=== PATIENT | male | born 1950 | race Caucasian/White ===

== ENCOUNTER 2018-10-30 20:26 | Inpatient (IN) | payer MEDICARE, MEDICAID ==
[2018-10-30] MEDS ORDERED: Albuterol/Ipratropium Neb 3 ML AERS HHN ONE ×2 (20:44→20:48)
--- NOTE | 2018-10-30 21:30 | ED Physician Chart ---
ED Chief Complaint/HPI - Patient Information Date Seen:: 10/30/18 Time Seen:: 20:40 Chief Complaint:: Agitation History of Present Illness:: onset x 3 days of agitation and aggressive behavior; no report of trauma, H/As, LOC, ALOC, AMS, S/T, neck pain, cough, C/P, SOB, Abd. Pain, A/N/V/D/C, fever, chills, SIs, or urinary s/s Allergies:: Allergies Allergy/AdvReac Type Severity Reaction Status Date / Time No Known Allergies Allergy Verified 10/30/18 20:40 Vitals:: Vital Signs - 8 hr 10/30/18 10/30/18 20:40 21:01 Temp 97.9 F 97.8 F HR 76 75 RR 26 35 BP 137/86 142/72 O2 Sat % 92 93 Historian:: Patient, EMS Review:: Nurse's Note Reviewed, Old Chart Reviewed, EMS run form Reviewed ED Review of Systems - Review of Systems General/Constitutional: No fever, No chills, No weight loss, No weakness, No diaphoresis, No edema, No loss of appetite Skin: No skin lesions, No rash, No bruising Head: No headache, No light-headedness Eyes: No loss of vision, No pain, No diplopia ENT: No earache, No nasal drainage, No sore throat, No tinnitus Neck: No neck pain, No swelling, No thyromegaly, No stiffness, No mass noted Cardio Vascular: No chest pain, No palpitations, No PND, No orthopnea, No edema Pulmonary: SOB, Cough, No sputum, Wheezing GI: No nausea, No vomiting, No diarrhea, No pain, No melena, No hematochezia, No constipation, No hematemesis G/U: No dysuria, No frequency, No hematuria, No nacturia Musculoskeletal: No bone or joint pain, No back pain, No muscle pain Endocrine: No polyuria, No polydipsia Psychiatric: Prior psych history, Depression, Anxiety, No suicidal ideation, No homicidal ideation, No auditory hallucination, No visual hallucination Hematopoietic: No bruising, No lymphadenopathy Allergic/Immuno: No urticaria, No angioedema Neurological: No syncope, No focal symptoms, No weakness, No paresthesia, No headache, No seizure, No dizziness, No confusion, No vertigo ED Past Medical History - Past Medical History Obtainable: Yes Past Medical History: HTN, DM, Asthma/COPD, Dyslipidemia, PUD/GERD, Seizures, Arthritis, Dementia Family History: Diabetes Melitus, HTN Social History: Non Smoker, No Alcohol, No Drug Use, Single, Care Facility Surgical History: None Psychiatricy History: Schizophrenia, Bipolar, Dementia Medication: Reviewed Family Medical History - Family Member Mother History Unknown: Yes ED Physical Exam - Physical Examination General/Constitutional: Awake, Well-developed, well-nourished, Alert, No distress, GCS 15, Non-toxic appearing, Ambulatory Head: Atraumatic Eyes: Lids, conjuctiva normal, PERRL, EOMI Skin: Nl inspection, No rash, No skin lesions, No ecchymosis, Well hydrated, No lymphadenopathy ENMT: External ears, nose nl, TM canals nl, Nasal exam nl, Lips, teeth, gums nl , Oropharynx nl, Tonsils nl Neck: Nontender, Full ROM w/o pain, No JVD, No nuchal rigidity, No bruit, No mass, No stridor Other Neck comments:: supple; no meningeal signs; no cervical tenderness; no bruits Respiratory: Nl effort/Exclusion Other Respiratory comments:: Lungs: + Expiratory Wheezes Cardio Vascular: No murmur, gallop, rubs, NL S1 S2, Carotid/Femoral/Distal pulses equal bilaterally Other Cardio Vascular comments:: Irregular Irregular Rhythm GI: No tenderness/rebounding/guarding, No organomegaly, No hernia, Normal BS's, Nondistended, No mass/bruits, No McBurney tenderness Other GI comments:: no pulsatile masses : No CVA tenderness Extremities: No tenderness or effusion, Full ROM, normal strength in all extremities, No edema, Normal digits & nails Neuro/Psych: Alert/oriented, DTR's symmetric, Normal sensory exam, Normal motor strength, Judgement/insight normal, Mood normal, Normal gait, No focal deficits Other Neuro/Psych comments:: no focal signs; MSE: + Psychomotor Agitation; no SIs; Mood/Affect: Labile Misc: Normal back, No paraspinal tenderness ED Labs/Radiology/EKG Results - Lab Results Comments:: Refused by pt - Radiology Results Comments:: NAD; CM - EKG Interpretations EKG Time:: 21:01 Rate & Rhythm: 91; Atrial Fibrillation Comments:: non-specific st-t changes; IVCD ED Septic Shock - . Is Septic Shock (SBP<90, OR Lactate>4 mmol\L) present?: No - <6hrs of presentation: Vital Signs: Vital Signs - 8 hr 10/30/18 10/30/18 20:40 21:01 Temp 97.9 F 97.8 F HR 76 75 RR 26 35 BP 137/86 142/72 O2 Sat % 92 93 ED Reassessment (Disposition) - Reassessment Reassessment Condition:: Improved - Diagnosis Diagnosis:: Dx: Agitation; Medical Clearance; Atrial Fibrillation; HTN; DM; Dementia; Psychosis; Schizo-Affective Disorder; Bipolar Disorder - Aftercare/Follow up Instructions Aftercare/Follow-Up Instructions:: Counseled pt regarding lab results/diagnosis & need follow up, Counseled pt & family regarding lab results/diagnosis & need follow up - Patient Disposition Discharge/Transfer:: Acute Care w/in this hosp Admitted to:: [facility] Condition at Disposition:: Stable, Improved
[2018-10-30 23:02] VITALS: BP 113/68
[2018-10-30] MEDS ORDERED: HYPROMELLOSE EACH EYE PRN (23:21)
[2018-10-30] MEDS ORDERED: Magnesium Hydroxide (MOM) 30 mL UDC PO PRN (23:21)
[2018-10-30] MEDS ORDERED: DEXTRAN EACH EYE PRN (23:21)
[2018-10-31] MEDS ORDERED: Polyvinyl Alcohol Ophth Soln 15 mL Bottle EACH EYE PRN (01:25)
[2018-10-31] MEDS: INSULIN ASPART SLIDING SCALE 100 UNITS/ML UNIT SUBQ SCH ×4 (06:39→22:14)
[2018-10-31] MEDS: Pantoprazole 40 mg EC Tab PO SCH (06:40)
--- NOTE | 2018-10-31 08:27 | Diagnostic Imaging Report ---
Portable chest x-ray HISTORY: Shortness of breath The heart appears enlarged. Density noted in the left lower hemithorax suggesting a small effusion. IMPRESSION: 1. Cardiomegaly 2. Density within the left lower hemithorax that may be associated with a pleural effusion. Pneumonia cannot be excluded. Clinical correlation is needed.
[2018-10-31] MEDS: Aspirin 81mg Chewable Tab PO SCH (08:57)
[2018-10-31] MEDS: Lactobacillus Rhamnosus GG 15 Billion CFU CAP.SPRINK PO SCH (08:58)
[2018-10-31] MEDS: Multivitamin w/ Minerals Tab PO SCH (08:58)
[2018-10-31] MEDS ORDERED: PECTIN PO SCH (09:00)
[2018-10-31] MEDS ORDERED: PREDNISONE 5 MG PO SCH (09:00)
[2018-10-31] MEDS ORDERED: LACTOBACILLUS ACIDOPHILUS PO SCH (09:00)
[2018-10-31] MEDS ORDERED: [UNRECOGNIZED DRUG - OTHER] PO SCH (09:00)
[2018-10-31] MEDS ORDERED: Non-Formulary Item 1 EA (Cranberry Fruit Extract [Cranberry] 425 MG) PO SCH (09:00)
[2018-10-31] MEDS ORDERED: Insulin Detemir 100 units/mL 10mL Vial SUBQ SCH (09:00)
[2018-10-31] MEDS ORDERED: Non-Formulary Item 1 EA (Atorvastatin Calcium [Lipitor] 20 MG) PO SCH (21:00)
[2018-10-31] MEDS: Atorvastatin Calcium 10 MG TAB PO SCH (21:50)
--- NOTE | 2018-10-31 23:07 | Psychiatric Evaluation ---
DATE OF SERVICE: 10/31/2018 HISTORY OF PRESENT ILLNESS: A 68-year-old male, currently from [facility], well known to this clinician, 3 days of agitation and aggressive behaviors. The patient yelling, screaming "get me the fuck out of here, I want to go now." Not answering any questions other than just ruminating and perseverating about wanting to leave, aggressive, yelling, screaming, poor historian. PAST PSYCHIATRIC HISTORY: Admissions in the past. History of mood disorder and cognitive impairment, and dementia. SOCIAL HISTORY: Living in a senior living. No smoking. No drugs. No alcohol. Denies having a or kids, but he states "I probably have kids." PAST MEDICAL HISTORY: Noted including arthritis. MEDICATIONS: Noted. MENTAL STATUS EXAMINATION: Stated age, fair eye contact. Speech loud, yelling. Mood: "I want to go." Affect flat. Thought processes were disoriented, disengaged. No overt SI or HI, unclear psychotic symptoms. Insight and judgment diminished. Impulse control is poor. Medications were noted. PROVISIONAL DIAGNOSES: Dementia per history and bipolar per history. MEDICAL: Please see full H and P. ESTIMATED LENGTH OF STAY: 7-10 days. ASSESSMENT: The patient unruly, agitated, aggressive, loud, screaming. PLAN: We will restart medications. TREATMENT PLAN: Includes group as well as milieu therapy. CONDITIONS FOR DISCHARGE: Improved mood, improved affect, better control of his mood symptoms, yelling, screaming. [facility]# [id number]
--- NOTE | 2018-11-01 00:37 | History & Physical ---
ADMIT DATE: 10/31/2018 REASON FOR ADMISSION: Psychiatric disorder. HISTORY OF PRESENT ILLNESS: This is 68-year-old with underlying history of hypertension, hyperlipidemia, diabetes, dementia, psychiatric disorders, admitted to the Geropsych Unit for evaluation of underlying psychiatric illness by Dr. Garner. Dr. Garner requested medical H and P on this patient. The patient denies any medical complaints. PAST MEDICAL HISTORY: As per HPI. PAST SURGICAL HISTORY: No significant past surgical history. SOCIAL HISTORY: Lives at home. No reported alcohol, tobacco, or street drug use. CURRENT MEDICATIONS: On multiple medications, MAR reviewed. ALLERGIES: None reported. REVIEW OF SYSTEMS: No fever, no chills, no diarrhea, no vomiting, no abdominal pain, no headache, no chest pain or troubled breathing. No other complaint reported. PHYSICAL EXAMINATION: VITAL SIGNS: Temperature 97.4, pulse 69, respiratory rate 18, blood pressure 128/68. Pain 0/10. HEENT: Unremarkable. HEART: S1, S2 normal. LUNGS: Clear to auscultation. ABDOMEN: Soft, nontender. NEUROLOGIC: The patient is awake. Moves all extremities. Grossly nonfocal. EXTREMITIES: No edema. AVAILABLE LABORATORY DATA: Reviewed. ASSESSMENT: 1. Hypertension. 2. Hyperlipidemia. 3. Diabetes type 2. 4. Diabetic neuropathy. 5. Dementia. 6. . PLAN: The patient will be admitted to Geropsych Unit. Psych evaluation by psychiatrist. Continue Zestril, hydralazine, Neurontin, Aricept, Plavix, Pulmicort, Lipitor, aspirin. The patient's insulin is on hold. Monitor blood sugars. The patient's condition and plan of care discussed with nursing staff. Thank you, Dr. Garner, for allowing me to participate in the care of this patient. JOB# [id number]
[2018-11-01] MEDS: Albuterol/Ipratropium Neb 3 ML AERS HHN PRN (04:20)
[2018-11-01] MEDS: INSULIN ASPART SLIDING SCALE 100 UNITS/ML UNIT SUBQ SCH ×4 (06:44→22:00)
[2018-11-01] MEDS: Pantoprazole 40 mg EC Tab PO SCH (06:46)
[2018-11-01] MEDS: Aspirin 81mg Chewable Tab PO SCH (09:28)
[2018-11-01] MEDS: Multivitamin w/ Minerals Tab PO SCH (09:28)
[2018-11-01] MEDS: Lactobacillus Rhamnosus GG 15 Billion CFU CAP.SPRINK PO SCH (09:28)
[2018-11-01] MEDS: Carbidopa/Levodopa 10/100 mg Tab PO SCH ×4 (09:29→21:55)
[2018-11-01] MEDS: Budesonide 0.5 Mg/2 mL Ud HHN SCH (09:29)
--- NOTE | 2018-11-01 16:20 | Progress Notes ---
DATE: 11/01/2018 SUBJECTIVE: The patient in the hospital, coming from a halfway, had been yelling, screaming, agitated. They could not control him there, screaming at people. On [id number], the patient is still yelling, confused, withdrawn, mostly keeps to himself suspicious with staff, demanding to leave. the patient yelling for shoes over and over again, ruminative, perseverative. Medications were noted. ASSESSMENT: The patient remains symptomatic, still yelling, upset, cannot be cared for at a lower level of care. PLAN: We will continue to monitor. I will titrate and adjust doses of medications. I will be increasing his dosages of Depakote to b.i.d. dosing. JOB# [id number]
[2018-11-01] MEDS: Atorvastatin Calcium 10 MG TAB PO SCH (21:55)
[2018-11-02] MEDS: INSULIN ASPART SLIDING SCALE 100 UNITS/ML UNIT SUBQ SCH ×4 (06:30→21:16)
[2018-11-02] MEDS: Pantoprazole 40 mg EC Tab PO SCH (06:43)
[2018-11-02] MEDS: Budesonide 0.5 Mg/2 mL Ud HHN SCH ×2 (07:32→19:43)
[2018-11-02] MEDS: Albuterol/Ipratropium Neb 3 ML AERS HHN PRN ×2 (07:32→14:51)
[2018-11-02] MEDS: Lactobacillus Rhamnosus GG 15 Billion CFU CAP.SPRINK PO SCH (09:20)
[2018-11-02] MEDS: Multivitamin w/ Minerals Tab PO SCH (09:20)
[2018-11-02] MEDS: Aspirin 81mg Chewable Tab PO SCH (09:20)
[2018-11-02] MEDS: Carbidopa/Levodopa 10/100 mg Tab PO SCH ×4 (09:20→21:14)
[2018-11-02] MEDS: Atorvastatin Calcium 10 MG TAB PO SCH (21:15)
--- NOTE | 2018-11-03 01:04 | Progress Notes ---
DATE: 11/02/2018 Case was discussed with staff of the patient, reviewed records. This is a 68-year-old male who was ____ on 11/02/2018 from [facility] who has been seen by Dr. Garner at [facility] with history of 3 days of agitation and aggressive behavior prior to admission, yelling, screaming, using foul language uncooperative. He also has a history of dementia, living in a senior care facility. The patient was unable to make safe plan for self-care, unpredictable, impulsive, needing redirection, very poor insight, yelling, unable to make safe plan for self-care and he has been selective about taking his medication. We will continue outpatient group therapy, milieu therapy, and adjust medications as needed. [facility]# [id number]
[2018-11-03] MEDS: Albuterol/Ipratropium Neb 3 ML AERS HHN PRN (06:38)
[2018-11-03] MEDS: Budesonide 0.5 Mg/2 mL Ud HHN SCH ×2 (06:38→19:16)
[2018-11-03] MEDS: INSULIN ASPART SLIDING SCALE 100 UNITS/ML UNIT SUBQ SCH ×4 (06:40→20:50)
[2018-11-03] MEDS: Pantoprazole 40 mg EC Tab PO SCH (06:41)
[2018-11-03] MEDS: Aspirin 81mg Chewable Tab PO SCH (09:36)
[2018-11-03] MEDS: Lactobacillus Rhamnosus GG 15 Billion CFU CAP.SPRINK PO SCH (09:36)
[2018-11-03] MEDS: Carbidopa/Levodopa 10/100 mg Tab PO SCH ×4 (09:36→20:45)
[2018-11-03] MEDS: Multivitamin w/ Minerals Tab PO SCH (09:36)
[2018-11-03] MEDS: Atorvastatin Calcium 10 MG TAB PO SCH (20:45)
--- NOTE | 2018-11-03 23:09 | Progress Notes ---
DATE: 11/03/2018 SUBJECTIVE: Case was discussed with staff of the patient, records. The patient continues to be confused, aggressive, easily irritable, agitated, unable to participate in meaningful conversation or make safe plan for self-care. Continues to have poor insight. He is sleeping better, eating better. No side effects with the medication. The patient ____ symptoms sometimes refuses medication and he is demented, confused, and will continue her outpatient group therapy, milieu therapy, adjust medication as needed. JOB# [id number]
[2018-11-04] MEDS: Budesonide 0.5 Mg/2 mL Ud HHN SCH ×2 (06:37→19:12)
[2018-11-04] MEDS: Albuterol/Ipratropium Neb 3 ML AERS HHN PRN (06:37)
[2018-11-04] MEDS: INSULIN ASPART SLIDING SCALE 100 UNITS/ML UNIT SUBQ SCH ×4 (06:41→21:20)
[2018-11-04] MEDS: Pantoprazole 40 mg EC Tab PO SCH (06:42)
[2018-11-04] MEDS: Multivitamin w/ Minerals Tab PO SCH (09:32)
[2018-11-04] MEDS: Carbidopa/Levodopa 10/100 mg Tab PO SCH ×4 (09:32→20:55)
[2018-11-04] MEDS: Lactobacillus Rhamnosus GG 15 Billion CFU CAP.SPRINK PO SCH (09:32)
[2018-11-04] MEDS: Aspirin 81mg Chewable Tab PO SCH (09:32)
[2018-11-04] MEDS: Atorvastatin Calcium 10 MG TAB PO SCH (20:57)
[2018-11-05] MEDS: Pantoprazole 40 mg EC Tab PO SCH (06:52)
[2018-11-05] MEDS: INSULIN ASPART SLIDING SCALE 100 UNITS/ML UNIT SUBQ SCH ×4 (06:56→20:46)
[2018-11-05] MEDS: Budesonide 0.5 Mg/2 mL Ud HHN SCH ×2 (07:25→19:15)
[2018-11-05] MEDS: Aspirin 81mg Chewable Tab PO SCH (08:32)
[2018-11-05] MEDS: Carbidopa/Levodopa 10/100 mg Tab PO SCH ×6 (08:32→20:45)
[2018-11-05] MEDS: Lactobacillus Rhamnosus GG 15 Billion CFU CAP.SPRINK PO SCH (08:34)
[2018-11-05] MEDS: Multivitamin w/ Minerals Tab PO SCH (08:35)
--- NOTE | 2018-11-05 14:41 | Progress Notes ---
DATE: 11/04/2018 SUBJECTIVE: The patient seems to be calmer, less yelling, and screaming episodes pleasant on exam. No longer yelling as much. Tolerant of treatment thus far. Doing well with increased dose of mood stabilizer. Mostly keeps to himself, somewhat suspicious, wanting to go home as soon as possible. ASSESSMENT: The patient is calm, more cooperative, still confused on exam. Fair sleep. He is skipping some meals, but did eat lunch today. We will continue to monitor, monitor for first 24 hours given that the patient continues to eat __regular meals__. JOB# [id number] MTDD
--- NOTE | 2018-11-05 18:07 | Progress Notes ---
DATE: 11/05/2018 SUBJECTIVE: The patient remains confused, yelling, not eating very well, not taking his medications, at times poor medication compliance. The patient just screaming, "I want to go, I want to go, I want to go." Staff having a difficult time taking care of him given that he is still yelling and screaming at him, very upset. ASSESSMENT: The patient remains symptomatic, yelling, screaming, still agitated and irritable. PLAN: We will continue to monitor. We will encourage better med compliance. JOB# [id number]
[2018-11-05] MEDS: Atorvastatin Calcium 10 MG TAB PO SCH (20:45)
[2018-11-06] MEDS: INSULIN ASPART SLIDING SCALE 100 UNITS/ML UNIT SUBQ SCH ×4 (06:30→21:29)
[2018-11-06] MEDS: Pantoprazole 40 mg EC Tab PO SCH (06:44)
[2018-11-06] MEDS: Budesonide 0.5 Mg/2 mL Ud HHN SCH ×2 (07:08→19:27)
[2018-11-06] MEDS: Albuterol/Ipratropium Neb 3 ML AERS HHN PRN (07:14)
[2018-11-06] MEDS: Aspirin 81mg Chewable Tab PO SCH (10:00)
[2018-11-06] MEDS: Carbidopa/Levodopa 10/100 mg Tab PO SCH ×4 (10:00→21:29)
[2018-11-06] MEDS: Lactobacillus Rhamnosus GG 15 Billion CFU CAP.SPRINK PO SCH (10:00)
[2018-11-06] MEDS: Multivitamin w/ Minerals Tab PO SCH (10:00)
[2018-11-06] MEDS: Atorvastatin Calcium 10 MG TAB PO SCH (21:28)
[2018-11-07] MEDS: INSULIN ASPART SLIDING SCALE 100 UNITS/ML UNIT SUBQ SCH ×4 (06:51→21:34)
[2018-11-07] MEDS: Pantoprazole 40 mg EC Tab PO SCH (06:51)
[2018-11-07] MEDS: Albuterol/Ipratropium Neb 3 ML AERS HHN PRN (06:58)
[2018-11-07] MEDS: Budesonide 0.5 Mg/2 mL Ud HHN SCH ×2 (06:58→19:45)
[2018-11-07] MEDS: Aspirin 81mg Chewable Tab PO SCH (09:00)
[2018-11-07] MEDS: Carbidopa/Levodopa 10/100 mg Tab PO SCH ×4 (09:00→21:32)
[2018-11-07] MEDS: Multivitamin w/ Minerals Tab PO SCH (09:01)
[2018-11-07] MEDS: Lactobacillus Rhamnosus GG 15 Billion CFU CAP.SPRINK PO SCH (09:01)
--- NOTE | 2018-11-07 10:22 | Progress Notes ---
DATE: 11/06/2018 The patient is currently in the hospital, noted to be angry, still yelling, confused, irritable, erratic medication compliance, strikes out at staff during diaper changes. The patient on really still yelling, hard of hearing, stating and screaming that he wants to leave. Medications were noted. Currently on Aricept, Namenda, and Depakote. I will be increasing medications. Namenda to daytime dosing. He is on Namenda daily. Already will continue and check a Depakote level. JOB# [id number]
[2018-11-07] MEDS: Atorvastatin Calcium 10 MG TAB PO SCH (21:32)
--- NOTE | 2018-11-08 01:31 | Progress Notes ---
DATE: 11/07/2018 SUBJECTIVE: The patient in the hospital, still yelling and confused, major concerns about appetite, mostly just drinking orange juice. The patient stating he wants to go home. Poor impulse control. Poor insight. Unclear as to why he is not eating. ASSESSMENT: The patient is mildly agitated, concerns about p.o. intake, yelling, screaming episodes. PLAN: Medications were noted. We will continue to monitor. We will continue to make adjustments to medication regimen. Consider Shanell. JOB# [id number]
[2018-11-08] MEDS: INSULIN ASPART SLIDING SCALE 100 UNITS/ML UNIT SUBQ SCH ×4 (06:46→20:16)
[2018-11-08] MEDS: Pantoprazole 40 mg EC Tab PO SCH (06:46)
[2018-11-08] MEDS: Albuterol/Ipratropium Neb 3 ML AERS HHN PRN ×2 (06:52→19:44)
[2018-11-08] MEDS: Budesonide 0.5 Mg/2 mL Ud HHN SCH ×2 (06:52→19:44)
[2018-11-08] MEDS: Aspirin 81mg Chewable Tab PO SCH (10:00)
[2018-11-08] MEDS: Lactobacillus Rhamnosus GG 15 Billion CFU CAP.SPRINK PO SCH (10:00)
[2018-11-08] MEDS: Multivitamin w/ Minerals Tab PO SCH (10:00)
[2018-11-08] MEDS: Carbidopa/Levodopa 10/100 mg Tab PO SCH ×4 (10:00→20:30)
[2018-11-08] MEDS: Atorvastatin Calcium 10 MG TAB PO SCH (20:31)
[2018-11-09] MEDS: Budesonide 0.5 Mg/2 mL Ud HHN SCH ×2 (06:51→19:31)
[2018-11-09] MEDS: INSULIN ASPART SLIDING SCALE 100 UNITS/ML UNIT SUBQ SCH ×4 (06:52→21:42)
[2018-11-09] MEDS: Pantoprazole 40 mg EC Tab PO SCH (07:08)
[2018-11-09] MEDS: Multivitamin w/ Minerals Tab PO SCH (09:31)
[2018-11-09] MEDS: Aspirin 81mg Chewable Tab PO SCH (09:31)
[2018-11-09] MEDS: Carbidopa/Levodopa 10/100 mg Tab PO SCH ×4 (09:31→21:38)
[2018-11-09] MEDS: Lactobacillus Rhamnosus GG 15 Billion CFU CAP.SPRINK PO SCH (09:31)
--- NOTE | 2018-11-09 09:37 | Progress Notes ---
DATE: 11/08/2018 SUBJECTIVE: The patient in the hospital, still yelling, upset, still screaming at times, still with poor p.o. intake. Staff noting to really prompt him to eat more today. He ate about 50% of his breakfast, which is an improvement. The patient remains confused, distracted, disoriented, still hard to redirect, currently tolerant of mirtazapine. ASSESSMENT: The patient remains symptomatic, still yelling, upset. Poor p.o. intake. PLAN: We will continue to monitor. Continue mirtazapine. JOB# [id number]
[2018-11-09] MEDS: Atorvastatin Calcium 10 MG TAB PO SCH (21:37)
--- NOTE | 2018-11-10 01:54 | Progress Notes ---
DATE: 11/09/2018 SUBJECTIVE: The patient is currently in the hospital, confused, disoriented, yelling, screaming and poor p.o. intake. The patient is eating somewhat better, but still yelling, screaming, mostly focused on drinking milk, orange juice, very impoverished thought processes. The patient will be going back to [facility], upon clearance and stabilization. ASSESSMENT: The patient is confused, disoriented, still with difficulty eating, focused on milk, orange juice. He is eating somewhat better. PLAN: We will continue to monitor. The patient likely approaching his baseline. Continue Mirtazapine. JOB# [id number]
[2018-11-10] MEDS: INSULIN ASPART SLIDING SCALE 100 UNITS/ML UNIT SUBQ SCH ×4 (06:55→20:29)
[2018-11-10] MEDS: Pantoprazole 40 mg EC Tab PO SCH (06:56)
[2018-11-10] MEDS: Budesonide 0.5 Mg/2 mL Ud HHN SCH ×2 (07:23→19:26)
[2018-11-10] MEDS: Aspirin 81mg Chewable Tab PO SCH (08:40)
[2018-11-10] MEDS: Carbidopa/Levodopa 10/100 mg Tab PO SCH ×4 (08:40→20:23)
[2018-11-10] MEDS: Lactobacillus Rhamnosus GG 15 Billion CFU CAP.SPRINK PO SCH (08:41)
[2018-11-10] MEDS: Multivitamin w/ Minerals Tab PO SCH (08:47)
[2018-11-10] MEDS: Atorvastatin Calcium 10 MG TAB PO SCH (20:23)
--- NOTE | 2018-11-10 22:34 | Progress Notes ---
DATE: 11/10/2018 ADDENDUM The patient's medications are well tolerated including Remeron, Depakote. No overt side effects. No overt sedation. I did receive a call on the evening of 11/09/2018 from the durable power of estate planning attorney. Her name is Alanna. I did call her back this morning at [phone] and I did leave a message for her, and currently pending a call back. JOB# [id number]
--- NOTE | 2018-11-11 00:41 | Progress Notes ---
DATE: 11/10/2018 SUBJECTIVE: The patient in the hospital, confused, but calmer, ongoing concerns about his appetite, but as of yesterday, he was eating better. The patient still easily agitated, sleeping about 7-8 hours a night, some yelling, keeps asking for orange juice, milk. He remains anxious, irritable. However, he is calmer, he is not trying to hit staff. He just talking really loud. The patient is completely not caring about his diabetes status. He has been more cooperative. ASSESSMENT: The patient seems calmer, more cooperative, likely approaching his baseline. PLAN: We will continue to monitor. The patient seems to be doing well with current dosing regimen. [facility]# [id number]
[2018-11-11] MEDS: Budesonide 0.5 Mg/2 mL Ud HHN SCH ×2 (06:38→19:41)
[2018-11-11] MEDS: INSULIN ASPART SLIDING SCALE 100 UNITS/ML UNIT SUBQ SCH ×4 (06:52→20:27)
[2018-11-11] MEDS: Pantoprazole 40 mg EC Tab PO SCH (06:52)
[2018-11-11] MEDS: Carbidopa/Levodopa 10/100 mg Tab PO SCH ×4 (12:12→20:28)
[2018-11-11] MEDS: Aspirin 81mg Chewable Tab PO SCH (12:12)
[2018-11-11] MEDS: Lactobacillus Rhamnosus GG 15 Billion CFU CAP.SPRINK PO SCH (12:13)
[2018-11-11] MEDS: Multivitamin w/ Minerals Tab PO SCH (12:13)
--- NOTE | 2018-11-11 17:23 | General Progress Note ---
Subjective - Review of Systems Service Date: 11/11/18 Subjective: Patient seen and examined doing fine no new concern reported Objective - Results Recent Labs: Laboratory Last Values POC Glucose 113 MG/DL (70 - 105) H 11/11/18 06:29 - Physical Exam Vitals and I&O: Vital Signs Temp 98.7 F 11/11/18 14:00 Pulse 85 11/11/18 14:00 Resp 20 11/11/18 14:00 BP 120/74 11/11/18 14:00 Pulse Ox 96 11/11/18 14:00 Intake & Output 11/10/18 11/11/18 11/11/18 18:59 06:59 18:59 Weight (lbs) 92.986 kg Other: # Voids 3 # Bowel Movements 0 Weight Source Bedscale Active Medications: Current Medications Acetaminophen (Tylenol) 650 mg PO Q6HR PRN PRN Reason: Pain or Fever >101 Stop: 12/29/18 23:20 Last Admin: 11/01/18 03:47 Dose: 650 mg Albuterol/Ipratropium (Duoneb Neb) 3 ml HHN Q4HRT PRN PRN Reason: COPD Stop: 12/29/18 23:20 Last Admin: 11/08/18 19:44 Dose: 3 ml Artificial Tears (Artificial Tears Ophth Soln) 1 drop EACH EYE BID PRN PRN Reason: Dry Eye Stop: 12/30/18 01:24 Ascorbic Acid (Vitamin C) 500 mg PO DAILY [facility] Stop: 12/30/18 08:59 Last Admin: 11/11/18 12:12 Dose: Not Given Aspirin (Aspirin Chewable) 81 mg PO DAILY MIKKI Stop: 12/30/18 08:59 Last Admin: 11/11/18 12:12 Dose: Not Given Atorvastatin Calcium (Lipitor) 20 mg PO HS [facility] Stop: 12/30/18 20:59 Last Admin: 11/10/18 20:23 Dose: 20 mg Budesonide (Pulmicort) 0.5 mg HHN BIDRT MIKKI Stop: 12/30/18 06:59 Last Admin: 11/11/18 06:38 Dose: 0.5 mg Carbidopa/Levodopa (Sinemet 10 Mg-100 Mg) 1 tab PO QID MIKKI Stop: 12/30/18 08:59 Last Admin: 11/11/18 17:15 Dose: 1 tab Clopidogrel Bisulfate (Plavix) 75 mg PO DAILY [facility] Stop: 12/30/18 08:59 Last Admin: 11/11/18 12:12 Dose: Not Given Divalproex Sodium (Depakote Dr) 250 mg PO BID [facility]; Protocol Stop: 12/31/18 16:59 Last Admin: 11/11/18 17:15 Dose: 250 mg Docusate Sodium (Colace) 100 mg PO BID [facility] Stop: 12/30/18 08:59 Last Admin: 11/11/18 17:15 Dose: 100 mg Gabapentin (Neurontin) 300 mg PO BID [facility] Stop: 12/30/18 08:59 Last Admin: 11/11/18 17:16 Dose: 300 mg Hydralazine HCl (Apresoline) 25 mg PO QID [facility] Stop: 12/30/18 08:59 Last Admin: 11/11/18 17:15 Dose: Not Given Insulin Aspart (Novolog Insulin Sliding Scale) 0 units SUBQ ACHS [facility]; Protocol Stop: 12/30/18 07:29 Last Admin: 11/11/18 17:15 Dose: Not Given Lactobacillus Rhamnosus (Culturelle 15b) 1 each PO DAILY [facility] Stop: 12/30/18 08:59 Last Admin: 11/11/18 12:13 Dose: Not Given Lisinopril (Zestril) 20 mg PO DAILY [facility] Stop: 12/30/18 08:59 Last Admin: 11/11/18 12:13 Dose: Not Given Lorazepam (Ativan) 0.5 mg PO Q12H PRN; Protocol PRN Reason: Anxiety Stop: 12/29/18 23:20 Last Admin: 11/10/18 20:26 Dose: 0.5 mg Magnesium Hydroxide (Milk Of Magnesia) 30 ml PO HS PRN PRN Reason: Constipation Stop: 12/29/18 23:20 Metoprolol Tartrate (Lopressor) 25 mg PO BID [facility] Stop: 12/30/18 08:59 Last Admin: 11/11/18 17:16 Dose: Not Given Mirtazapine (Remeron) 15 mg PO HS [facility]; Protocol Stop: 01/06/19 20:59 Last Admin: 11/10/18 20:26 Dose: 15 mg Pantoprazole Sodium (Protonix) 40 mg PO DAILY@0730 [facility] Stop: 12/30/18 07:29 Last Admin: 11/11/18 06:52 Dose: 40 mg Prednisone (Deltasone) 5 mg PO DAILY [facility]I Stop: 12/30/18 08:59 Last Admin: 11/11/18 12:13 Dose: Not Given Cardiovascular: Regular rate Lungs: Clear to auscultation Assessment/Plan - Assessment Assessment: DM II HTN HYPERLIPIDEMIA MENTAL HEALTH DISORDER - Plan Plan: Continue current treatment Monitor BP Monitor blood sugar Psych follow up Nutritional Asmnt/Malnutr-PDOC - Dietary Evaluation Malnutrition Findings (Please click <Entered> for more info): Nutritional Asmnt/Malnutrition Start: 11/02/18 11: 48 Text: Status: Complete Freq: Protocol: Document 11/02/18 11:51 DOLORES (Rec: 11/02/18 12:06 [email or web address]- [id number]) Nutritional Asmnt/Malnutrition Patient General Information Nutritional Screening Moderate Risk Diagnosis Psychosis Pertinent Medical Hx/Surgical Hx HTN, hyperlipidemia, diabetes, dementia, psychiatric disorders Subjective Information Patient was admitted from [facility]. Per nursing notes, patient is paranoid, withdrawn, and easily agitated, may be verabally abusive at times. Current Diet Order/ Nutrition Support Mechanical soft chopped, 60 gm CCHO, YUE Patient / S.O Not Indicated Pertinent Medications Vitamin C, lipitor, Colace, Novolog, Levemir, MOM, Protonix Pertinent Labs No new labs (POC gluocse good) Nutritional Hx/Data Height 1.55 m Height (Calculated Centimeters) 154.9 Current Weight (lbs) 92.986 kg Weight (Calculated Kilograms) 93.0 Weight (Calculated Grams) 47554.4 Cordell Body Weight 112 % Cordell Body Weight 183 Body Mass Index (BMI) 38.7 Recent Weight Change No Weight Status Obese GI Symptoms GI Symptoms None Last BM 11/01 x1 Difficult in: None Food Allergies No Cultural/Ethnic/Yazidism Belief None indicated Usual diet at home Unknown Skin Integrity/Comment: "pressure area", "redness to right and left buttocks", [place] 14 Current %PO Poor (25-49%) Estimated Nutritional Goals BEE in Kcals: Adj wt of IBW Calories/Kcals/Kg (25-30 kcal/kg) Using Adj wt 61.4kg Kcals Calculated ~7852-5088 kcal/day Protein: Adj wt of IBW Protein g/k-1.2 gm/kg Protein Calculated ~60-75 gm/day Fluid: ml ~6013-2156 ml/day Nutritional Problem 1. Problem Problem Inadequate oral intake related to Etiology possible poor appetite or confusion aeb Signs/Symptoms: PO intake <50% of meals on average (refusing some meals) Intervention/Recommendation Comments 1. Continue current diet as tolerated by patient (per H&P, hx of DM and HTN) 2. Encourage oral intake and provide assistance with meals as needed due to poor intake. If oral intake remains intadequate, consider adding Glucerna 1/meal. 3. Consider checking labs to determine need for more therapeutic diet. 4. F/U in 3-5 days as MR 11/05 -13 Expected Outcomes/Goals Expected Outcomes/Goals Oral intake >75% of meals, weight stable or trend toward IBW, nutrition related labs WNL
--- NOTE | 2018-11-11 18:38 | Progress Notes ---
DATE: 11/11/2018 The patient is currently in the hospital, calmer, less yelling episodes. Eating much better, although wants to eat, poor dietary foods, but he is eating meals more regularly, less refusal of meals. No longer as agitated, much calmer on exam. He has been accepted back to [facility], durable power of extractor filler, hesitant to send him back. I did contact her yesterday, currently I am pending a call back. I have not heard back from her as of yet. Medications were noted. ASSESSMENT: The patient calmer, likely approaching his baseline, doing better, eating better. PLAN: We will attempt to have appropriate disposition. We will continue to review medications currently without any side effects, no EPS for example, no overt sedation. No SI, no HI. No overt psychotic symptoms. JOB# [id number]
[2018-11-11] MEDS: Atorvastatin Calcium 10 MG TAB PO SCH (20:29)
[2018-11-12] MEDS: Albuterol/Ipratropium Neb 3 ML AERS HHN PRN ×3 (01:34→18:42)
[2018-11-12] MEDS: INSULIN ASPART SLIDING SCALE 100 UNITS/ML UNIT SUBQ SCH ×4 (06:35→21:03)
[2018-11-12] MEDS: Pantoprazole 40 mg EC Tab PO SCH (06:35)
[2018-11-12] MEDS: Budesonide 0.5 Mg/2 mL Ud HHN SCH ×2 (07:18→18:42)
[2018-11-12] MEDS: Lactobacillus Rhamnosus GG 15 Billion CFU CAP.SPRINK PO SCH (08:41)
[2018-11-12] MEDS: Aspirin 81mg Chewable Tab PO SCH (08:41)
[2018-11-12] MEDS: Carbidopa/Levodopa 10/100 mg Tab PO SCH ×4 (08:41→20:58)
[2018-11-12] MEDS: Multivitamin w/ Minerals Tab PO SCH (08:41)
[2018-11-12] MEDS: Atorvastatin Calcium 10 MG TAB PO SCH (20:57)
--- NOTE | 2018-11-12 22:48 | Progress Notes ---
DATE: 11/12/2018 SUBJECTIVE: The patient is currently in the hospital. Poorly oriented, yelling at times, seems to be at his baseline, calm, more cooperative. He is gravely disabled. We have nowhere really to send him at this time. He has apparently been accepted back to [facility] but according to the power of mental health aide he does not want to go back there. We will confirm. I did contact [facility] few days ago and never got a call back. Fair sleep, fair appetite. ASSESSMENT: The patient is likely approaching his baseline, calmer, more cooperative, less yelling episodes, better appetite. PLAN: We will continue to monitor. We will attempt again to reach out to the durable power of mental health aide. JOB# [id number]
[2018-11-13] MEDS: INSULIN ASPART SLIDING SCALE 100 UNITS/ML UNIT SUBQ SCH ×4 (06:34→21:12)
[2018-11-13] MEDS: Pantoprazole 40 mg EC Tab PO SCH (06:41)
[2018-11-13] MEDS: Albuterol/Ipratropium Neb 3 ML AERS HHN PRN (08:03)
[2018-11-13] MEDS: Budesonide 0.5 Mg/2 mL Ud HHN SCH ×2 (08:03→19:58)
[2018-11-13] MEDS: Aspirin 81mg Chewable Tab PO SCH (09:25)
[2018-11-13] MEDS: Carbidopa/Levodopa 10/100 mg Tab PO SCH ×4 (09:26→20:49)
[2018-11-13] MEDS: Lactobacillus Rhamnosus GG 15 Billion CFU CAP.SPRINK PO SCH (09:29)
[2018-11-13] MEDS: Multivitamin w/ Minerals Tab PO SCH (09:31)
[2018-11-13] MEDS: Atorvastatin Calcium 10 MG TAB PO SCH (20:49)
--- NOTE | 2018-11-13 21:47 | Progress Notes ---
DATE: 11/13/2018 The patient calmer, more cooperative, ____ appears no longer yelling, no longer screaming. Appetite seems to have normalized. I have made multiple efforts to reach out to durable power of consumer attorney. Sleeping well, eating better. ASSESSMENT: The patient calmer likely approaching his baseline. No agitation, no aggressive symptoms. PLAN: We will continue to monitor. We will plan to discharge tomorrow. JOB# [id number]
[2018-11-14] MEDS: Pantoprazole 40 mg EC Tab PO SCH (06:35)
[2018-11-14] MEDS: Albuterol/Ipratropium Neb 3 ML AERS HHN PRN ×2 (06:48→20:08)
[2018-11-14] MEDS: Budesonide 0.5 Mg/2 mL Ud HHN SCH ×2 (06:48→19:49)
[2018-11-14] MEDS: Multivitamin w/ Minerals Tab PO SCH (09:13)
[2018-11-14] MEDS: Lactobacillus Rhamnosus GG 15 Billion CFU CAP.SPRINK PO SCH (09:15)
[2018-11-14] MEDS: Carbidopa/Levodopa 10/100 mg Tab PO SCH ×4 (09:15→21:45)
[2018-11-14] MEDS: Aspirin 81mg Chewable Tab PO SCH (09:15)
[2018-11-14] MEDS: INSULIN ASPART SLIDING SCALE 100 UNITS/ML UNIT SUBQ SCH ×3 (11:59→21:58)
[2018-11-14] MEDS: Atorvastatin Calcium 10 MG TAB PO SCH (21:45)
--- NOTE | 2018-11-14 22:49 | Discharge Summary ---
DATE OF DISCHARGE: 11/14/2018 DATE OF DISCHARGE: 11/14/2018. JUSTIFICATION FOR HOSPITALIZATION: Yelling, screaming, unruly behaviors. HISTORY OF PRESENT ILLNESS: A 68-year-old male, confused, seems to have dementia, mood lability, screaming, yelling at [facility], unable to be redirected. He is screaming at the top of his lungs, cannot be controlled, resistance to care, repetitive, perseverative, and ruminative. PAST PSYCHIATRIC HISTORY: Admissions in the past, cognitive decline and impairment. SOCIAL HISTORY: The patient requiring [facility] care, has a durable power of commercial attorney. MEDICATIONS: Noted. PROVISIONAL DIAGNOSIS: Cognitive decline likely dementia; mood, unspecified; anxiety, unspecified. MEDICAL: Please see full H and P. HOSPITAL COURSE: After initial assessment, the patient's medications were adjusted. Depakote increased. I took him off the dementia medications. They were not helping. Put him on Remeron. Over the course of hospitalization, his mood improved. He was calmer, more cooperative, no longer yelling, no longer screaming, much calmer in fact, eating better as he was refusing some meals, sleeping well. Toward the latter end of his hospitalization, he approaches baseline, calm, cooperative, no screaming episodes, no longer resistive to care. CONDITION UPON DISCHARGE: Improved. Fair ADLs, good eye contact. Mood: "Good." Affect flat. Thought processes were confused, disoriented, ruminative. No SI, no HI, no overt psychotic symptoms, better impulse control. PROVISIONAL DIAGNOSES: Dementia; mood, unspecified; and anxiety, unspecified. MEDICAL: Please see full H and P. I did make multiple efforts and also to get in touch with durable power of commercial attorney. PROGNOSIS: The patient follows at the [facility] and remains compliant with treatment. Prognosis will improve, otherwise guarded. [facility]# [id number]
[2018-11-15] MEDS: Pantoprazole 40 mg EC Tab PO SCH (06:40)
[2018-11-15] MEDS: INSULIN ASPART SLIDING SCALE 100 UNITS/ML UNIT SUBQ SCH ×3 (06:47→18:07)
[2018-11-15] MEDS: Budesonide 0.5 Mg/2 mL Ud HHN SCH (07:11)
[2018-11-15] MEDS: Albuterol/Ipratropium Neb 3 ML AERS HHN PRN (07:11)
[2018-11-15] MEDS: Aspirin 81mg Chewable Tab PO SCH (09:21)
[2018-11-15] MEDS: Carbidopa/Levodopa 10/100 mg Tab PO SCH ×3 (09:22→18:08)
[2018-11-15] MEDS: Lactobacillus Rhamnosus GG 15 Billion CFU CAP.SPRINK PO SCH (09:22)
[2018-11-15] MEDS: Multivitamin w/ Minerals Tab PO SCH (09:27)
--- NOTE | 2018-11-15 20:50 | Progress Notes ---
DATE: 11/15/2018 HOSPITAL COURSE: The patient was not discharged yesterday due to delays in transportation. He will be leaving today. He is calmer, still somewhat resistant to care. Some yelling episodes during staff changing, but he is much calmer. Eating has normalized. No aggressive or physical behaviors. No SI, no HI. Tolerant of treatment. Tolerant to medications. No overt side effects noted. JOB# [id number]
== END 2018-11-15 19:30 | DRG 885 ==
LOC: ER 20:26 → GERO 21:38
PROVIDERS: ADMIT Psychiatry & Neurology Psychiatry; ATTEND Psychiatry & Neurology Psychiatry
DX: F25.9 Schizoaffective disorder, unspecified (principal); F03.90 Unspecified dementia, unspecified severity, without behavioral disturbance, psychotic disturbance, mood disturbance, and anxiety; F31.9 Bipolar disorder, unspecified; I10 Essential (primary) hypertension; E78.5 Hyperlipidemia, unspecified; E11.40 Type 2 diabetes mellitus with diabetic neuropathy, unspecified; F29 Unspecified psychosis not due to a substance or known physiological condition; F41.9 Anxiety disorder, unspecified; I48.91 Unspecified atrial fibrillation; J44.9 Chronic obstructive pulmonary disease, unspecified; K21.9 Gastro-esophageal reflux disease without esophagitis; R56.9 Unspecified convulsions; Z83.3 Family history of diabetes mellitus; Z82.49 Family history of ischemic heart disease and other diseases of the circulatory system; Z66 Do not resuscitate
CPT/HCPCS: 71045-TC; 82948-90; 83036-90; 93005; 94640; 94760; J1815; J7512; Z7610